=== PATIENT | female | born 1990 | race Asian ===

== ENCOUNTER 2017-04-28 01:47 | Emergency (ER) | END 2017-04-28 03:09 | disposition home or self-care (01) ==

== ENCOUNTER → 2017-05-22 | Outpatient (CLI) | END | disposition home or self-care (01) ==

== ENCOUNTER → 2017-11-01 | Outpatient (CLI) | END | disposition home or self-care (01) ==

== ENCOUNTER → 2018-02-19 | Outpatient (CLI) | END | disposition home or self-care (01) ==

== ENCOUNTER → 2018-03-12 | Outpatient (CLI) | END | disposition home or self-care (01) ==